=== PATIENT | female | born 1985 | race Caucasian/White ===

== ENCOUNTER 2016-11-29 13:50 | Emergency (ER) | payer BC, OTHER ==
[2016-11-29 14:22] VITALS: BP 133/76
--- NOTE | 2016-11-29 14:32 | EDM.PDOC ---
ED HPI GENERAL MEDICAL PROBLEM - General Chief Complaint: Abdominal Pain Stated Complaint: PT FEELS BUMP WHERE SHE HAS HER SCARED Time Seen by Provider: 11/29/16 14:19 - History of Present Illness INITIAL COMMENTS - FREE TEXT/NARRATIVE: HISTORY AND PHYSICAL: History of present illness: The patient is a 31-year-old female who presents with a lump-like area at her scar site in the left lower quadrant that she noticed 2 days ago and she is concerned. According to the patient she had a small colonic perforation which evolved into sepsis and she had to have an emergency surgery with colostomy performed at [facility] in December 2015. Since that time she has been reversed by Dr. segovia in [place] in June of this year and she said that she has never had any issues or problems with lumps bumps or discomfort since that surgery. The patient works here locally but lives in [place]. The patient presents saying that 2 days ago she noticed a lump-like area near the old colostomy scar and there is some discomfort there but she is eating and drinking normally and has not having any fever chills vomiting or bowel movement issues. She said she more notices it when she is standing up and she does stand all day for work. There is some discomfort when she is standing up but there is no discomfort when she lays flat. She says she has never noticed any hernial defects at her scar is in the past. Review of systems: As per history of present illness and below otherwise all systems reviewed and negative. Past medical history: As per history of present illness and as reviewed below otherwise noncontributory. Surgical history: As per history of present illness and as reviewed below otherwise noncontributory. Social history: No reported history of drug or alcohol abuse. Family history: As per history of present illness and as reviewed below otherwise noncontributory. Physical exam: Gen.: Well-developed overweight female who does have a large pannus and multiple scars see below exam. She moves easily in the ED and is in no distress and she is not toxic. Vital signs have been reviewed by me HEENT: Atraumatic, normocephalic, negative for conjunctival pallor or scleral icterus, mucous membranes moist, throat clear, neck supple, nontender, trachea midline. Lungs: Clear to auscultation, breath sounds equal bilaterally, chest nontender. Heart: S1S2, regular rate and rhythm no overt murmurs Abdomen: Soft, nondistended, nontender on supine exam. There is a well-healed midline incision without any hernial defects and there is a large scar at the left lower quadrant which the patient indicates is her old colostomy scar. I cannot appreciate any hernial defects in the midline scar nor in the old colostomy scar on supine exam but when the patient stands upright I can see a slight bulging to the lateral aspect of the old colostomy scar. On palpation I do feel hernial defect which is easily reduced and recurs. There is some tenderness with this part of the exam but it is not excruciating.. Negative for masses or hepatosplenomegaly. Negative for costovertebral tenderness. Pelvis: Stable nontender. Genitourinary: Deferred. Rectal: Deferred. Extremities: Atraumatic, negative for cords or calf pain. Neurovascular unremarkable. Neuro: Awake, alert, oriented. Cranial nerves II through XII unremarkable. Cerebellum unremarkable. Motor and sensory unremarkable throughout. Exam nonfocal. Diagnostics: Abdominal x-rays--- I discussed with the patient that if the x-ray show any sign of obstruction that we will proceed to do labs and a CAT scan but at this point the patient is comfortable with just the x-rays. She said she is more concerned about the cosmesis as she has never had that lump before and she was concerned because of her history. She does not have any discrete pain except when she palpates or stands for long periods of time. Therapeutics: [] I discussed with the patient the abdominal x-ray results and she asked me about the possibility of a perforation again. I told her that if she was concerned about that I would need to do labs and a CAT scan--a told her that I do not feel that this is indicated at this time as she has a palpable hernial defect which is reducible.. At this point I advised her to connect with her surgeon back in [place] for further reevaluation and to monitor the mass and if it changes in size or character or she exhibits more pain vomiting or fevers that she should return to the ER. Impression: Ventral wall/incisional hernial defect stable Definitive disposition and diagnosis as appropriate pending reevaluation and review of above. abdomen Pain Score (Numeric/FACES): 2 - Related Data Allergies Allergy/AdvReac Type Severity Reaction Status Date / Time No Known Allergies Allergy Verified 11/29/16 14:14 Home Meds: Home Meds . 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 OB/BYN History: term vaginal stillbirth 2007 - Past Surgical History GI Surgical History: Reports: Colostomy Social & Family History - Family History Family Medical History: Noncontributory Cardiac: Reports: [place] Neurological: Reports: CVA Endocrine/Metabolic: Reports: Other (See Below) Other Endocrine/Metabolic Family History: trauma induced diabetes - Tobacco Use Smoking Status *Q: Current Every Day Smoker Years of Tobacco use: 12 Packs/Tins Daily: 1 Second Hand Smoke Exposure: Yes - Caffeine Use Caffeine Use: Reports: None - Alcohol Use Days Per Week of Alcohol Use: 2 Number of Drinks Per Day: 2 Total Drinks Per Week: 4 - Recreational Drug Use Recreational Drug Use: Yes Drug Use in Last 12 Months: Yes Recreational Drug Type: Reports: Marijuana/Hashish Recreational Drug Use Frequency: Daily ED ROS GENERAL - Review of Systems Review Of Systems: ROS reveals no pertinent complaints other than HPI. ED EXAM, GENERAL - Physical Exam Exam: See Below (See dictation) Course - Vital Signs Last Recorded V/S: Last Vital Signs Temp 36.2 C 11/29/16 13:50 Pulse 65 11/29/16 13:50 Resp 18 11/29/16 13:50 BP 133/76 11/29/16 13:50 Pulse Ox 97 11/29/16 13:50 - Orders/Labs/Meds Orders: Active Orders 24 hr Category Date Time Status Abdomen 2V AP Flat Upright [CR] Stat Exams 11/29/16 14:27 Taken Departure - Departure Time of Disposition: 15:52 Disposition: Home, Self-Care 01 Condition: Good Clinical Impression: Ventral hernia Qualifiers: Obstruction and gangrene presence: without obstruction or gangrene Qualified Code(s): K43.9 - Ventral hernia without obstruction or gangrene - Discharge Information Referrals: PCP,None [Primary Care Provider] - Forms: ED Department Discharge Additional Instructions: The following information is given to patients seen in the emergency department who are being discharged to home. This information is to outline your options for follow-up care. We provide all patients seen in our emergency department with a follow-up referral. The need for follow-up, as well as the timing and circumstances, are variable depending upon the specifics of your emergency department visit. If you don't have a primary care physician on staff, we will provide you with a referral. We always advise you to contact your personal physician following an emergency department visit to inform them of the circumstance of the visit and for follow-up with them and/or the need for any referrals to a consulting specialist. The emergency department will also refer you to a specialist when appropriate. This referral assures that you have the opportunity for followup care with a specialist. All of these measure are taken in an effort to provide you with optimal care, which includes your followup. Under all circumstances we always encourage you to contact your private physician who remains a resource for coordinating your care. When calling for followup care, please make the office aware that this follow-up is from your recent emergency room visit. If for any reason you are refused follow-up, please contact the [facility] emergency department at and ask to speak to the emergency department charge nurse. [facility] Primary care- Internal Medicine and Family [facility] [address] [place] [address] [facility] Specialty Care-General Surgery Professional Building [address] [place] [id number] Please monitor the hernia for any increased in size or inability or eat to be reduced. Please also monitor for any fevers vomiting and return to ER as needed and as we discussed. Please contact her surgeon back in [place] for further reevaluation and possible treatment as we discussed. Please wear an abdominal binder to provide you some support so as this will not get larger. Increase fiber in your diet and use a stool softener to keep your bowels moving - My Orders Last 24 Hours: My Active Orders 11/29/16 14:27 Abdomen 2V AP Flat Upright [CR] Stat - Assessment/Plan Last 24 Hours: My Active Orders 11/29/16 14:27 Abdomen 2V AP Flat Upright [CR] Stat
--- NOTE | 2016-12-01 13:49 | CR ---
EXAM DATE: 11/29/16 PATIENT'S AGE: 31 Patient: ISMAEL LINTON Facility: [place], [place] Site . Site : 1985 Study: XRay Abdomen [id number] 2:53:39 PM Ordering Physician: Sasha Steele Final Report: INDICATION: Abdominal pain, bulging at area where colostomy bag was TECHNIQUE: Upright and supine views of the abdomen IMPRESSION : The bowel gas pattern is nonobstructive. Upright exam shows no free air under the hemidiaphragms. Large volume of colonic stool. No pathologic abdominal calcifications. Dictated by Wolf Whiteside MD @ Nov 29 2016 3:10PM (Electronic Signature) Report Signed by Proxy. LINH
== END 2016-11-29 16:13 | disposition home or self-care (01) ==
LOC: MW.ED 13:50
DX: K43.9 Ventral hernia without obstruction or gangrene (principal); F17.210 Nicotine dependence, cigarettes, uncomplicated
CPT/HCPCS: 74020; 74020-26; 99283; 99284

== ENCOUNTER 2017-04-25 10:47 | Emergency (ER) | payer BC ==
[2017-04-25] MEDS ORDERED: Sodium Chloride 0.9% 2.5 ML Syringe FLUSH PRN (11:26)
[2017-04-25] MEDS ORDERED: Sodium Chloride 0.9% 10 ML Syringe FLUSH PRN (11:26)
[2017-04-25] MEDS ORDERED: Ondansetron 4 MG/2 ML SDV IVPUSH ONE (11:26)
--- NOTE | 2017-04-25 11:29 | EDM.PDOC ---
ED HPI GENERAL MEDICAL PROBLEM - General Chief Complaint: General Stated Complaint: congestion, weak, and just really feeling sick Time Seen by Provider: 04/25/17 11:24 Source of Information: Reports: Patient History Limitations: Reports: No Limitations - History of Present Illness INITIAL COMMENTS - FREE TEXT/NARRATIVE: HISTORY AND PHYSICAL: [] 31-year-old female presenting with nausea and vomiting 2 days History of Present Illness: []Patient's had a cold for a week now has the last 2 days started vomiting Review of Systems: As per history of present illness and below otherwise all systems reviewed and negative. Past medical history: As per history of present illness and as reviewed below otherwise noncontributory. Surgical history: As per history of present illness and as reviewed below otherwise noncontributory. Social history: No reported history of drug or alcohol abuse. Family history: As per history of present illness and as reviewed below otherwise noncontributory. Physical exam: Alert and oriented female who feels just miserable. Answering questions appropriately in full sentences. Without shortness of breath HEENT: Atraumatic, normocehpalic, pupils reactive, negative for conjunctival pallor or scleral icterus, mucous membranes moist, throat clear, neck supple, nontender, trachea midline. Tympanic membranes dull landmarks are still visualized. No cervical adenopathy palpable. Lungs: Clear to auscultation, breath sounds equal bilaterally, chest non tender. Heart: S1S2, regular, negative for clicks, rubs, or JVD. Abdomen: Soft, nondistended, nontender. Negative for masses or hepatossplenmegaly. Negative for costovertebral tenderness. Pelvis: Stable nontender. Genitourinary: Deferred. Rectal: Deferred Extremities: Atraumatic, negative for cords or calf pain. Neurovascular unremarkable. Neuro: Awake, alert, oriented. Cranial nerves II through XII unremarkable. Cerebellum unremarkable. Motor and sensory unremarkable throughout. Exam nonfocal. Discussed with patient the non-flu gastroenteritis that she has. Diagnostics: [Influenza CBC CMP] Therapeutics: [Zofran, saline] Impression: [Gastritis] Plan: []Discharged to home Zofran ODT Note for work Rest at home Definitive disposition and diagnosis as appropriate pending reevaluation and review of above. Onset: Gradual Duration: Day(s):, Getting Worse Location: Reports: Abdomen Quality: Reports: Ache Severity: Moderate Improves with: Reports: None Worsens with: Reports: None chest with breathing Pain Score (Numeric/FACES): 2 - Related Data Allergies Allergy/AdvReac Type Severity Reaction Status Date / Time No Known Allergies Allergy Verified 04/25/17 10:59 Home Meds: Home Meds Ondansetron [Zofran ODT] 4 mg PO Q6H PRN #12 tab.dis 04/25/17 [Rx] Past Medical History - Past Health History Medical/Surgical History: Denies Medical/Surgical History Gastrointestinal History: Reports: Other (See Below) Other Gastrointestinal History: sepsis 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 OB/BYN History: term vaginal stillbirth 2007 - Past Surgical History GI Surgical History: Reports: Colostomy Social & Family History - Family History Family Medical History: Noncontributory Cardiac: Reports: [place] Neurological: Reports: CVA Endocrine/Metabolic: Reports: Other (See Below) Other Endocrine/Metabolic Family History: trauma induced diabetes - Tobacco Use Smoking Status *Q: Current Every Day Smoker Years of Tobacco use: 10 Packs/Tins Daily: 0.5 Second Hand Smoke Exposure: Yes - Caffeine Use Caffeine Use: Reports: Soda, Tea - Alcohol Use Days Per Week of Alcohol Use: 2 Number of Drinks Per Day: 2 Total Drinks Per Week: 4 - Recreational Drug Use Recreational Drug Use: Yes Drug Use in Last 12 Months: Yes Recreational Drug Type: Reports: Marijuana/Hashish Recreational Drug Use Frequency: Monthly ED ROS GENERAL - Review of Systems Review Of Systems: ROS reveals no pertinent complaints other than HPI. ED EXAM, GENERAL - Physical Exam Exam: See Below (see dictation) Course - Vital Signs Last Recorded V/S: Last Vital Signs Temp 36.4 C 04/25/17 10:56 Pulse 70 04/25/17 10:56 Resp 16 04/25/17 10:56 BP 125/65 04/25/17 10:56 Pulse Ox 98 04/25/17 10:56 - Orders/Labs/Meds Orders: Active Orders 24 hr Category Date Time Status Sodium Chloride 0.9% [Normal Saline] 500 ml Med 04/25/17 11:30 Active IV STAT Sodium Chloride 0.9% [Saline Flush] Med 04/25/17 11:26 Active 10 ml FLUSH ASDIRECTED PRN Sodium Chloride 0.9% [Saline Flush] Med 04/25/17 11:26 Active 2.5 ml FLUSH ASDIRECTED PRN Saline Lock Insert [OM.PC] Stat Oth 04/25/17 11:26 Ordered Medication Orders Sodium Chloride (Normal Saline) 500 mls @ 999 mls/hr IV STAT RADHA Last Admin: 04/25/17 11:50 Dose: 999 mls/hr Sodium Chloride (Saline Flush) 10 ml FLUSH ASDIRECTED PRN PRN Reason: Keep Vein Open Sodium Chloride (Saline Flush) 2.5 ml FLUSH ASDIRECTED PRN PRN Reason: Keep Vein Open Labs: Laboratory Tests 04/25/17 04/25/17 Range/Units 11:40 11:40 WBC 8.14 (4.0-11.0) K/uL RBC 4.50 (4.30-5.90) M/uL Hgb 14.7 (12.0-16.0) g/dL Hct 42.7 (36.0-46.0) % MCV 94.9 (80.0-98.0) fL MCH 32.7 H (27.0-32.0) pg MCHC 34.4 (31.0-37.0) g/dL RDW Std Deviation 46.6 (28.0-62.0) fl RDW Coeff of Sam 14 (11.0-15.0) % Plt Count 208 (150-400) K/uL MPV 11.50 (7.40-12.00) fL Neut % (Auto) 71.9 (48.0-80.0) % Lymph % (Auto) 19.9 (16.0-40.0) % Appling % (Auto) 5.9 (0.0-15.0) % Eos % (Auto) 2.1 (0.0-7.0) % Baso % (Auto) 0.2 (0.0-1.5) % Neut # (Auto) 5.9 H (1.4-5.7) K/uL Lymph # (Auto) 1.6 (0.6-2.4) K/uL Appling # (Auto) 0.5 (0.0-0.8) K/uL Eos # (Auto) 0.2 (0.0-0.7) K/uL Baso # (Auto) 0.0 (0.0-0.1) K/uL Nucleated RBC % 0.0 /100WBC Nucleated RBCs # 0 K/uL Sodium 141 (136-146) mmol/L Potassium 4.3 (3.5-5.1) mmol/L Chloride 108 (98-110) mmol/L Carbon Dioxide 23 (21-31) mmol/L BUN 11 (6.0-23.0) mg/dL Creatinine 0.7 (0.6-1.5) mg/dL Est Cr Clr Drug Dosing 131.91 mL/min Estimated GFR (MDRD) > 60.0 ml/min Glucose 115 H (60-110) mg/dL Calcium 8.7 L (8.8-10.8) mg/dL Total Bilirubin 0.4 (0.1-1.5) mg/dL AST 18 (5-40) IU/L ALT 15 (8-54) IU/L Alkaline Phosphatase 93 (40-150) Total Protein 6.5 (6.0-8.0) g/dL Albumin 3.7 (3.5-5.0) g/dL Globulin 2.8 (2.0-3.5) g/dL Albumin/Globulin Ratio 1.3 (1.3-2.8) Meds: Medications Generic Name Dose Route Start Last Admin Trade Name Freq PRN Reason Stop Dose Admin Sodium Chloride 500 mls @ 999 mls/hr 04/25/17 11:30 04/25/17 11:50 Normal Saline IV 999 mls/hr STAT RADHA Administration Sodium Chloride 10 ml 04/25/17 11:26 Saline Flush FLUSH ASDIRECTED PRN Keep Vein Open Sodium Chloride 2.5 ml 04/25/17 11:26 Saline Flush FLUSH ASDIRECTED PRN Keep Vein Open Discontinued Medications Generic Name Dose Route Start Last Admin Trade Name Freq PRN Reason Stop Dose Admin Ketorolac Tromethamine 30 mg 04/25/17 11:42 04/25/17 11:58 Toradol IVPUSH 04/25/17 11:43 30 mg ONETIME ONE Administration Ketorolac Tromethamine Confirm 04/25/17 11:43 04/25/17 11:58 Toradol Administered 04/25/17 11:44 Not Given Dose 30 mg .ROUTE .STK-MED ONE Ondansetron HCl 4 mg 04/25/17 11:26 04/25/17 11:59 Zofran IVPUSH 04/25/17 11:27 4 mg ONETIME ONE Administration Departure - Departure Time of Disposition: 13:16 Disposition: Home, Self-Care 01 Condition: Good Clinical Impression: Gastroenteritis - Discharge Information Prescriptions: Ondansetron [Zofran ODT] 4 mg PO Q6H PRN #12 tab.dis PRN Reason: Nausea/Vomiting Referrals: PCP,None [Primary Care Provider] - Forms: ED Department Discharge Additional Instructions: The following information is given to patients seen in the emergency department who are being discharged to home. This information is to outline your options for follow-up care. We provide all patients seen in our emergency department with a follow-up referral. The need for follow-up, as well as the timing and circumstances, are variable depending upon the specifics of your emergency department visit. If you don't have a primary care physician on staff, we will provide you with a referral. We always advise you to contact your personal physician following an emergency department visit to inform them of the circumstance of the visit and for follow-up with them and/or the need for any referrals to a consulting specialist. The emergency department will also refer you to a specialist when appropriate. This referral assures that you have the opportunity for followup care with a specialist. All of these measure are taken in an effort to provide you with optimal care, which includes your followup. Under all circumstances we always encourage you to contact your private physician who remains a resource for coordinating your care. When calling for followup care, please make the office aware that this follow-up is from your recent emergency room visit. If for any reason you are refused follow-up, please contact the [facility] emergency department at and asked to speak to the emergency department charge nurse. Zofran ODT has been ordered from your pharmacy Home and rest A note has been given for work today - My Orders Last 24 Hours: My Active Orders 04/25/17 11:26 Sodium Chloride 0.9% [Saline Flush] 10 ml FLUSH ASDIRECTED PRN Sodium Chloride 0.9% [Saline Flush] 2.5 ml FLUSH ASDIRECTED PRN Saline Lock Insert [OM.PC] Stat 04/25/17 11:30 Sodium Chloride 0.9% [Normal Saline] 500 ml IV STAT - Assessment/Plan Last 24 Hours: My Active Orders 04/25/17 11:26 Sodium Chloride 0.9% [Saline Flush] 10 ml FLUSH ASDIRECTED PRN Sodium Chloride 0.9% [Saline Flush] 2.5 ml FLUSH ASDIRECTED PRN Saline Lock Insert [OM.PC] Stat 04/25/17 11:30 Sodium Chloride 0.9% [Normal Saline] 500 ml IV STAT
[2017-04-25] MEDS ORDERED: Sodium Chloride 0.9% 500 ML IV SCH (11:30)
[2017-04-25] MEDS ORDERED: Ketorolac 30 MG/ML SDV IVPUSH ONE (11:42)
[2017-04-25] MEDS ORDERED: Ketorolac 30 MG/ML SDV ONE (11:43)
[2017-04-25 12:02] LABS: CHLORIDE,CL 108 mmol/L (98-110); SODIUM,NA 141 mmol/L (136-146)
[2017-04-25 13:51] VITALS: BP 104/51
== END 2017-04-25 13:40 | disposition home or self-care (01) ==
LOC: MW.ED 10:47
DX: K52.9 Noninfective gastroenteritis and colitis, unspecified (principal); K29.70 Gastritis, unspecified, without bleeding; F17.210 Nicotine dependence, cigarettes, uncomplicated
CPT/HCPCS: 36415; 80053; 85025; 87804; 96361; 96374; 96375; 99283; J1885; J2405; J7040

== ENCOUNTER 2017-07-03 17:09 | Emergency (ER) | payer BC ==
--- NOTE | 2017-07-03 17:42 | EDM.PDOC ---
ED HPI GENERAL MEDICAL PROBLEM - General Chief Complaint: ENT Problem Stated Complaint: TOOTH PAIN Time Seen by Provider: 07/03/17 17:24 - History of Present Illness INITIAL COMMENTS - FREE TEXT/NARRATIVE: HISTORY AND PHYSICAL: History of present illness: Patient 31-year-old female presents for concern of dental pain she has an abscess of her left lower molar and has a scheduled dentist appointment. She denies fever chills nausea vomiting or other complaints Review of systems: As per history of present illness and below otherwise all systems reviewed and negative. Past medical history: As per history of present illness and as reviewed below otherwise noncontributory. Surgical history: As per history of present illness and as reviewed below otherwise noncontributory. Social history: No reported history of drug or alcohol abuse. Family history: As per history of present illness and as reviewed below otherwise noncontributory. Physical exam: HEENT: Atraumatic, normocephalic, pupils reactive, negative for conjunctival pallor or scleral icterus, mucous membranes moist, throat clear, neck supple, nontender, trachea midline. Generally poor dentition patient does have a dental carry with tingible swelling left lower molar. Lungs: Clear to auscultation, breath sounds equal bilaterally, chest nontender. Heart: S1S2, regular, negative for clicks, rubs, or JVD. Abdomen: Soft, nondistended, nontender. Negative for masses or hepatosplenomegaly. Negative for costovertebral tenderness. Pelvis: Stable nontender. Genitourinary: Deferred. Rectal: Deferred. Extremities: Atraumatic, negative for cords or calf pain. Neurovascular unremarkable. Neuro: Awake, alert, oriented. Cranial nerves II through XII unremarkable. Cerebellum unremarkable. Motor and sensory unremarkable throughout. Exam nonfocal. Diagnostics: None Therapeutics: None Impression: #1 dentalgia #2 dental abscess Definitive disposition and diagnosis as appropriate pending reevaluation and review of above. - Related Data Allergies Allergy/AdvReac Type Severity Reaction Status Date / Time No Known Allergies Allergy Verified 07/03/17 17:38 Home Meds: Home Meds . [No Known Home Meds] 07/03/17 [History] Past Medical History - Past Health History Medical/Surgical History: Denies Medical/Surgical History Gastrointestinal History: Reports: Other (See Below) Other Gastrointestinal History: sepsis [employer] History: Reports: Other OB/BYN History: term vaginal stillbirth 2008 - Past Surgical History GI Surgical History: Reports: Colostomy Social & Family History - Family History Family Medical History: Noncontributory Cardiac: Reports: ID Neurological: Reports: CVA Endocrine/Metabolic: Reports: Other (See Below) Other Endocrine/Metabolic Family History: trauma induced diabetes - Tobacco Use Smoking Status *Q: Current Every Day Smoker Years of Tobacco use: 10 Packs/Tins Daily: 0.5 Second Hand Smoke Exposure: Yes - Caffeine Use Caffeine Use: Reports: Soda, Tea - Alcohol Use Days Per Week of Alcohol Use: 2 Number of Drinks Per Day: 2 Total Drinks Per Week: 4 - Recreational Drug Use Recreational Drug Use: Yes Drug Use in Last 12 Months: Yes Recreational Drug Type: Reports: Marijuana/Hashish Recreational Drug Use Frequency: Monthly ED ROS GENERAL - Review of Systems Review Of Systems: ROS reveals no pertinent complaints other than HPI. ED EXAM, GENERAL - Physical Exam Exam: See Below (The dictation) Departure - Departure Time of Disposition: 17:40 Disposition: Home, Self-Care 01 Condition: Good Clinical Impression: Dentalgia, Dental abscess - Discharge Information Referrals: PCP,None [Primary Care Provider] - Additional Instructions: The following information is given to patients seen in the emergency department who are being discharged to home. This information is to outline your options for follow-up care. We provide all patients seen in our emergency department with a follow-up referral. The need for follow-up, as well as the timing and circumstances, are variable depending upon the specifics of your emergency department visit. If you don't have a primary care physician on staff, we will provide you with a referral. We always advise you to contact your personal physician following an emergency department visit to inform them of the circumstance of the visit and for follow-up with them and/or the need for any referrals to a consulting specialist. The emergency department will also refer you to a specialist when appropriate. This referral assures that you have the opportunity for followup care with a specialist. All of these measure are taken in an effort to provide you with optimal care, which includes your followup. Under all circumstances we always encourage you to contact your private physician who remains a resource for coordinating your care. When calling for followup care, please make the office aware that this follow-up is from your recent emergency room visit. If for any reason you are refused follow-up, please contact the [facility] emergency department at and asked to speak to the emergency department charge nurse. Marei Mansfield dental balls as directed daily dentist appointment return as needed as discussed[]
[2017-07-03] MEDS ORDERED: Lidocaine 2% Viscous Solution 15 ML Cup PO ONE (17:48)
[2017-07-03] MEDS ORDERED: Benzocaine 20% Topical Spray UD MUCMEM ONE (17:48)
[2017-07-03 18:00] VITALS: BP 111/66
== END 2017-07-03 17:57 | disposition home or self-care (01) ==
LOC: MW.ED 17:09
DX: K04.7 Periapical abscess without sinus (principal)
CPT/HCPCS: 99282; A9270